=== PATIENT | female | born 1970 | race Two or more races ===

== ENCOUNTER 2017-06-27 12:19 | Emergency (ER) | payer OTHER ==
[~2017-06-27] VITALS: Ht 152.4 cm; Wt 67.1 kg
[2017-06-27] MEDS ORDERED: FLUORESCEIN OPHTHALMIC 1 MG STRIP ONE ×2 (13:36→14:16)
[2017-06-27] MEDS ORDERED: PROPARACAINE OPHTH 0.5%, 15ML ONE ×2 (13:36→14:16)
[2017-06-27 14:47] VITALS: BP 118/81
== END 2017-06-27 16:17 | disposition home or self-care (01) ==
LOC: ED 13:49
DX: Z77.098 Contact with and (suspected) exposure to other hazardous, chiefly nonmedicinal, chemicals (principal); H10.212 Acute toxic conjunctivitis, left eye
CPT/HCPCS: 99283

== ENCOUNTER 2017-06-30 14:41 | Emergency (ER) | payer OTHER ==
[~2017-06-30] VITALS: Ht 154.9 cm; Wt 67.0 kg
[2017-06-30 14:47] VITALS: BP 112/72
[2017-06-30] MEDS ORDERED: FLUORESCEIN OPHTHALMIC 1 MG STRIP ONE (16:04)
[2017-06-30] MEDS ORDERED: PROPARACAINE OPHTH 0.5%, 15ML ONE (16:04)
== END 2017-06-30 17:12 | disposition home or self-care (01) ==
LOC: ED 16:32
DX: S05.02XA Injury of conjunctiva and corneal abrasion without foreign body, left eye, initial encounter (principal); X58.XXXA Exposure to other specified factors, initial encounter; Y93.89 Activity, other specified; Y92.89 Other specified places as the place of occurrence of the external cause; Y99.8 Other external cause status
CPT/HCPCS: 99282

== ENCOUNTER → 2018-05-06 | Outpatient (CLI) | payer OTHER | END | disposition home or self-care (01) | LOC: CFH 09:39 | PROVIDERS: ATTEND Nurse Practitioner Family | DX: M79.642 Pain in left hand (principal); M79.89 Other specified soft tissue disorders ==

== ENCOUNTER 2018-06-09 20:39 | Emergency (ER) | payer OTHER ==
[~2018-06-09] VITALS: Ht 162.6 cm; Wt 70.0 kg
[2018-06-09] MEDS ORDERED: IRON1TAB60 PO (20:59)
[2018-06-09] MEDS ORDERED: ASPIRIN 81 MG TABLET CHEW PO ONE (21:00)
[2018-06-09] MEDS ORDERED: SODIUM CHLORIDE 0.9% 1,000ML IVBOLUS ONE (21:00)
[2018-06-09] MEDS ORDERED: ASPIRIN 81 MG TABLET CHEW ONE (21:02)
[2018-06-09 21:12] LABS: BASOPHILS # (AUTO) 0.09 x10^3/uL (0-0.1); BASOPHILS % (AUTO) 1 % (0-1); EOSINOPHILS # (AUTO) 0.05 x10^3/uL (0-0.4); EOSINOPHILS % (AUTO) 0 % (1-7); LYMPHOCYTES # (AUTO) 1.53 x10^3/uL (1-3.4); LYMPHOCYTES % (AUTO) 12 % (22-44); MD NO; MEAN CORPUSCULAR HEMOGLOBIN 28.8 pg (27.0-34.8); MEAN CORPUSCULAR HGB CONC 33.4 g/dL (32.4-35.8); MEAN CORPUSCULAR VOLUME 86.3 fL (80-100); MEAN PLATELET VOLUME 9.4 fL (7.4-10.4); MONOCYTES # (AUTO) 0.55 x10^3/uL (0.2-0.8); MONOCYTES % (AUTO) 4 % (2-9); NEUTROPHILS # (AUTO) 10.17 x10^3/uL (1.8-6.8); NEUTROPHILS % (AUTO) 82 % (42-75); PLATELET COUNT 337 x10^3/uL (130-400); RED BLOOD COUNT 5.05 x10^6/uL (3.82-5.3); RED CELL DISTRIBUTION WIDTH 14.7 % (9.6-15.2)
[2018-06-09 21:13] LABS: ALBUMIN 3.8 g/dL (3.4-5.0); ANION GAP 6 mmol/L (5-15); CHLORIDE 108 mmol/L (98-107); CREATININE 0.71 mg/dL (0.55-1.02)
[2018-06-09 21:17] LABS: TROPONIN I < 0.015 ng/mL (0.000-0.045)
[2018-06-09] MEDS ORDERED: IBUPROFEN 200 MG TABLET ONE (21:58)
[2018-06-09] MEDS ORDERED: IBUPROFEN 200 MG TABLET PO ONE (22:00)
[2018-06-09 22:02] VITALS: BP 117/84
== END 2018-06-09 22:15 | disposition home or self-care (01) ==
LOC: ED 21:25
DX: G44.209 Tension-type headache, unspecified, not intractable (principal)
CPT/HCPCS: 36415; 71046; 80048; 82040; 84484; 84703; 85025; 93005; 96360; 99285; J7030

== ENCOUNTER → 2018-07-09 | Outpatient (CLI) | payer OTHER ==
[~2018-07-09] MED LIST: IRON1TAB60 PO
[2018-07-09 16:36] LABS: BASOPHILS # (AUTO) 0.03 x10^3/uL (0-0.1); BASOPHILS % (AUTO) 1 % (0-1); EOSINOPHILS % (AUTO) 3 % (1-7); LYMPHOCYTES # (AUTO) 2.06 x10^3/uL (1-3.4); LYMPHOCYTES % (AUTO) 35 % (22-44); MD NO; MEAN CORPUSCULAR HEMOGLOBIN 29.3 pg (27.0-34.8); MEAN CORPUSCULAR HGB CONC 33.1 g/dL (32.4-35.8); MEAN CORPUSCULAR VOLUME 88.4 fL (80-100); MEAN PLATELET VOLUME 8.9 fL (7.4-10.4); MONOCYTES # (AUTO) 0.32 x10^3/uL (0.2-0.8); MONOCYTES % (AUTO) 5 % (2-9); NEUTROPHILS # (AUTO) 3.34 x10^3/uL (1.8-6.8); NEUTROPHILS % (AUTO) 56 % (42-75); PLATELET COUNT 355 x10^3/uL (130-400); RED CELL DISTRIBUTION WIDTH 15.2 % (9.6-15.2)
[2018-07-09 16:42] LABS: CHLORIDE 109 mmol/L (98-107)
[2018-07-09 16:50] LABS: ALANINE AMINOTRANSFERASE 23 U/L (12-78); ALBUMIN 3.2 g/dL (3.4-5.0); ALKALINE PHOSPHATASE 93 U/L (45-117); ANION GAP 6 mmol/L (5-15); BILIRUBIN,TOTAL 0.2 mg/dL (0.2-1.0); CALCIUM 8.7 mg/dL (8.5-10.1); CREATININE 0.64 mg/dL (0.55-1.02); TOTAL PROTEIN 6.9 g/dL (6.4-8.2)
[2018-07-14 16:33] LABS: ANA SCREEN NEGATIVE (Negative)
== END | disposition home or self-care (01) ==
LOC: LAB 16:11
PROVIDERS: ATTEND Internal Medicine Rheumatology
DX: Z00.00 Encounter for general adult medical examination without abnormal findings (principal); R76.0 Raised antibody titer
CPT/HCPCS: 36415; 80053; 85025; 86038

== ENCOUNTER → 2018-10-07 | Outpatient (CLI) | payer OTHER ==
[2018-10-07 16:09] LABS: MICROSCOPIC AUTO
[2018-10-07 16:14] LABS: CULTURE INDICATED? YES
== END | disposition home or self-care (01) ==
LOC: LAB 15:24
PROVIDERS: ATTEND Family Medicine
DX: Z00.00 Encounter for general adult medical examination without abnormal findings (principal)
CPT/HCPCS: 81001; 87086

== ENCOUNTER → 2018-10-08 | Outpatient (CLI) | payer OTHER ==
[2018-10-08 07:30] LABS: BASOPHILS # (AUTO) 0.05 x10^3/uL (0-0.1); BASOPHILS % (AUTO) 1 % (0-1); EOSINOPHILS # (AUTO) 0.15 x10^3/uL (0-0.4); EOSINOPHILS % (AUTO) 2 % (1-7); LYMPHOCYTES # (AUTO) 1.89 x10^3/uL (1-3.4); LYMPHOCYTES % (AUTO) 31 % (22-44); MD NO; MEAN CORPUSCULAR HGB CONC 33.2 g/dL (32.4-35.8); MEAN CORPUSCULAR VOLUME 87.2 fL (80-100); MEAN PLATELET VOLUME 8.7 fL (7.4-10.4); MONOCYTES # (AUTO) 0.52 x10^3/uL (0.2-0.8); MONOCYTES % (AUTO) 8 % (2-9); NEUTROPHILS # (AUTO) 3.55 x10^3/uL (1.8-6.8); NEUTROPHILS % (AUTO) 58 % (42-75); PLATELET COUNT 309 x10^3/uL (130-400); RED CELL DISTRIBUTION WIDTH 14.4 % (9.6-15.2)
[2018-10-08 07:37] LABS: ALANINE AMINOTRANSFERASE 27 U/L (12-78); ALBUMIN 3.2 g/dL (3.4-5.0); ANION GAP 9 mmol/L (5-15); CALCIUM 8.5 mg/dL (8.5-10.1); CHLORIDE 110 mmol/L (98-107)
[2018-10-08 07:39] LABS: ALKALINE PHOSPHATASE 81 U/L (45-117); BILIRUBIN,TOTAL 0.4 mg/dL (0.2-1.0); CHOL/HDL RATIO 3.8; CHOLESTEROL, TOTAL 212 mg/dL (140-239); CREATININE 0.59 mg/dL (0.55-1.02); HDL CHOL % 26 % (28-40); HDL CHOLESTEROL (DIRECT) 56 mg/dL (40-60); LDL CHOLESTEROL,CALCULATED 137 mg/dL (54-169); LDL/HDL RATIO 2.4 (0.5-3.0); TOTAL PROTEIN 7.1 g/dL (6.4-8.2); TRIGLYCERIDES 95 mg/dL (50-200); VLDL CHOLESTEROL 19 mg/dL (0-25)
== END | disposition home or self-care (01) ==
LOC: LAB 07:13
PROVIDERS: ATTEND Family Medicine
DX: Z00.00 Encounter for general adult medical examination without abnormal findings (principal)
CPT/HCPCS: 36415; 80053; 80061; 85025

== ENCOUNTER 2019-12-14 15:58 | Emergency (ER) | payer OTHER ==
[~2019-12-14] VITALS: Ht 154.9 cm; Wt 78.0 kg
[2019-12-14 16:53] VITALS: BP 114/64
--- NOTE | 2019-12-14 17:11 | NUR ---
Pt c/o 4 weeks of cough and nasal congestion with worsening of cough over the past two days with associated headache. Pt denies cp, sob, n/v/d, syncope, or trauma. Pt connected to NIBP cuff and continous pulse ox monitor. Pt has call light within reach and spouse is at bedside. NADN. No needs expressed.
[2019-12-14] MEDS ORDERED: HYDROcodone/APAP 5/325 TABLET PO ONE (18:00)
[2019-12-14] MEDS ORDERED: HYDROcodone/APAP 5/325 TABLET ONE (18:01)
--- NOTE | 2019-12-14 18:36 | NUR ---
Patient given discharge instructions and they have confirmed that they understand the instructions. Patient ambulatory with steady gait. Pt left with d/c paperwork, Rx, and all personal belongings.
== END 2019-12-14 18:51 | disposition home or self-care (01) ==
LOC: ED 18:42
DX: J01.10 Acute frontal sinusitis, unspecified (principal); J01.00 Acute maxillary sinusitis, unspecified
CPT/HCPCS: 71046; 99283

== ENCOUNTER 2020-04-08 18:23 | Emergency (ER) | payer OTHER ==
[~2020-04-08] VITALS: Ht 139.7 cm; Wt 67.2 kg
[2020-04-08 18:27] VITALS: BP 136/81
--- NOTE | 2020-04-08 18:55 | NUR ---
PT IN GOWN IN [facility]. PT ATTACHED TO VS MONITORS. VSS. DR CABAN AT FOR PT HISTORY AND ASSESSMENT.
--- NOTE | 2020-04-08 19:44 | NUR ---
PT D/C WITH D/C SUMMARY. ALL QUESTIONS ANSWERED. PT AMBULATES TO REGISTRATION DESK WITH STEADY GAIT FOR D/C HOME. PT DENIES ANY OTHER NEEDS PERTAINING TO THIS VISIT.
== END 2020-04-08 19:47 | disposition home or self-care (01) ==
LOC: ED 18:45
DX: R50.9 Fever, unspecified (principal); F43.9 Reaction to severe stress, unspecified; M79.10 Myalgia, unspecified site
CPT/HCPCS: 99281

== ENCOUNTER 2020-04-10 09:31 | Emergency (ER) | payer OTHER ==
[~2020-04-10] VITALS: Ht 154.9 cm; Wt 68.0 kg
[2020-04-10] MEDS ORDERED: HYDROmorphone 1 MG/ML, 1ML INJ ONE (10:03)
[2020-04-10] MEDS ORDERED: KETOROLAC 30 MG/1 ML ONE (10:03)
[2020-04-10] MEDS ORDERED: ONDANSETRON 2MG/ML, 2ML ONE (10:04)
--- NOTE | 2020-04-10 10:23 | NUR ---
PT MEDICATED PER JAN. REPORTS PAIN IMPROVEMENT
[2020-04-10] MEDS ORDERED: HYDROmorphone 2 MG/ML, 1ML IVPush PRN (10:30)
[2020-04-10] MEDS ORDERED: ONDANSETRON 2MG/ML, 2ML IVPush ONE (10:30)
[2020-04-10] MEDS ORDERED: KETOROLAC 30 MG/1 ML IV ONE (10:30)
[2020-04-10] MEDS ORDERED: SODIUM CHLORIDE 0.9% 1,000ML IV ONE (10:30)
[2020-04-10 10:49] LABS: MICROSCOPIC INDICATED
[2020-04-10 10:50] LABS: ALANINE AMINOTRANSFERASE 26 U/L (12-78); ALBUMIN 3.2 g/dL (3.4-5.0); ANION GAP 7 mmol/L (5-15); CALCIUM 8.6 mg/dL (8.5-10.1); CHLORIDE 105 mmol/L (98-107); CREATININE 0.62 mg/dL (0.55-1.02)
[2020-04-10 10:52] LABS: ALKALINE PHOSPHATASE 92 U/L (45-117); BILIRUBIN,TOTAL 0.1 mg/dL (0.2-1.0); TOTAL PROTEIN 7.2 g/dL (6.4-8.2)
--- NOTE | 2020-04-10 10:53 | NUR ---
PT BACK FROM CT. RESTING IN [facility]. VSS.
[2020-04-10 10:58] LABS: CULTURE INDICATED? YES
[2020-04-10] MEDS ORDERED: SODIUM CHLORIDE FLUSH 10ML SYR IVF ONE (11:30)
[2020-04-10 11:38] LABS: MD YES
[2020-04-10 11:39] LABS: MEAN CORPUSCULAR HEMOGLOBIN 27.9 pg (27.0-34.8); MEAN CORPUSCULAR HGB CONC 32.8 g/dL (32.4-35.8); MEAN CORPUSCULAR VOLUME 85.1 fL (80-100); MEAN PLATELET VOLUME 9.2 fL (7.4-10.4); PLATELET COUNT 323 x10^3/uL (130-400); RED BLOOD COUNT 4.64 x10^6/uL (3.82-5.3); RED CELL DISTRIBUTION WIDTH 16.4 % (9.6-15.2); SEG#(MANUAL) 1.79 x10^3/uL (1.8-6.8); SEGS% (MANUAL) 38 % (42-75)
--- NOTE | 2020-04-10 11:39 | NUR ---
[place] [facility] [place]. NAD
[2020-04-10 11:40] LABS: BAND#(MANUAL) 0.05 x10^3/uL; BANDS%(MANUAL) 1 % (0-7); EOS#(MANUAL) 0.05 x10^3/uL (0.0-0.4); EOS% (MANUAL) 1 % (1-7); LYMPH#(MANUAL) 1.79 x10^3/uL (1-3.4); LYMPHS% (MANUAL) 38 % (22-44); MONOS% (MANUAL) 17 % (2-9); REACTIVE LYMPHS # (MANUAL) 0.24 x10^3/uL (0-0); REACTIVE LYMPHS % (MANUAL) 5 % (0-0)
[2020-04-10 11:41] LABS: <PLATELET ESTIMATE> ADEQUATE; <PLT MORPHOLOGY> NORMAL PLT MORPH; <RBC MORPHOLOGY> NORMAL
[2020-04-10 12:22] VITALS: BP 121/73
--- NOTE | 2020-04-10 12:22 | NUR ---
PT ROAD TEST FAILED. PT DIZZY AND NAUSEOUS
== END 2020-04-10 13:16 | disposition home or self-care (01) ==
LOC: ED 10:44
DX: R10.9 Unspecified abdominal pain (principal)
CPT/HCPCS: 36415; 74176; 80053; 81001; 83605; 85025; 87040; 87086; 96374; 96375; 99284; J1170; J1885; J2405; J7030

== ENCOUNTER 2020-04-14 14:49 | Emergency (ER) | payer OTHER ==
[~2020-04-14] VITALS: Ht 154.9 cm; Wt 67.5 kg
[2020-04-14] MEDS ORDERED: DIAZEPAM 5 MG TABLET PO ONE (16:00)
[2020-04-14] MEDS ORDERED: KETOROLAC 30 MG/1 ML IM ONE (16:00)
[2020-04-14] MEDS ORDERED: DIAZEPAM 5 MG TABLET ONE (16:07)
[2020-04-14] MEDS ORDERED: KETOROLAC 30 MG/1 ML ONE (16:07)
[2020-04-14 17:26] LABS: MICROSCOPIC NOT IND
[2020-04-14 17:37] LABS: ALBUMIN 3.1 g/dL (3.4-5.0); ANION GAP 6 mmol/L (5-15); CALCIUM 8.5 mg/dL (8.5-10.1); CHLORIDE 107 mmol/L (98-107)
[2020-04-14 17:40] LABS: ALANINE AMINOTRANSFERASE 26 U/L (12-78); ALKALINE PHOSPHATASE 91 U/L (45-117); BILIRUBIN,TOTAL 0.3 mg/dL (0.2-1.0); CREATININE 0.57 mg/dL (0.55-1.02); TOTAL PROTEIN 7.2 g/dL (6.4-8.2)
[2020-04-14 17:57] LABS: MD YES; MEAN CORPUSCULAR HEMOGLOBIN 27.7 pg (27.0-34.8); MEAN CORPUSCULAR HGB CONC 32.6 g/dL (32.4-35.8); MEAN CORPUSCULAR VOLUME 84.9 fL (80-100); MEAN PLATELET VOLUME 8.7 fL (7.4-10.4); PLATELET COUNT 347 x10^3/uL (130-400); RED BLOOD COUNT 4.61 x10^6/uL (3.82-5.3); RED CELL DISTRIBUTION WIDTH 16.4 % (9.6-15.2)
[2020-04-14 18:28] LABS: BAND#(MANUAL) 0.04 x10^3/uL; BANDS%(MANUAL) 1 % (0-7); BASOS#(MANUAL) 0.04 x10^3/uL (0-0.1); BASOS% (MANUAL) 1 % (0-1); LYMPH#(MANUAL) 1.62 x10^3/uL (1-3.4); LYMPHS% (MANUAL) 45 % (22-44); MONOS#(MANUAL) 0.14 x10^3/uL (0.3-2.7); MONOS% (MANUAL) 4 % (2-9); REACTIVE LYMPHS # (MANUAL) 0.22 x10^3/uL (0-0); REACTIVE LYMPHS % (MANUAL) 6 % (0-0); SEG#(MANUAL) 1.55 x10^3/uL (1.8-6.8); SEGS% (MANUAL) 43 % (42-75)
[2020-04-14 18:29] LABS: <PLATELET ESTIMATE> ADEQUATE; <PLT MORPHOLOGY> NORMAL PLT MORPH; <RBC MORPHOLOGY> NORMAL
[2020-04-14 18:37] VITALS: BP 114/76
== END 2020-04-14 18:39 | disposition home or self-care (01) ==
LOC: ED 18:33
DX: U07.1 COVID-19 (principal); S39.012A Strain of muscle, fascia and tendon of lower back, initial encounter; X58.XXXA Exposure to other specified factors, initial encounter; Y93.89 Activity, other specified; Y92.89 Other specified places as the place of occurrence of the external cause; Y99.8 Other external cause status
CPT/HCPCS: 36415; 72148; 80053; 81003; 85025; 99284; U0001

== ENCOUNTER 2020-06-23 14:30 | Emergency (ER) | payer OTHER ==
[~2020-06-23] VITALS: Ht 154.9 cm; Wt 70.0 kg
[2020-06-23 15:28] LABS: BASOPHILS # (AUTO) 0.04 x10^3/uL (0-0.1); BASOPHILS % (AUTO) 1 % (0-1); EOSINOPHILS % (AUTO) 2 % (1-7); LYMPHOCYTES # (AUTO) 1.97 x10^3/uL (1-3.4); LYMPHOCYTES % (AUTO) 34 % (22-44); MD NO; MEAN CORPUSCULAR HGB CONC 31.8 g/dL (32.4-35.8); MEAN CORPUSCULAR VOLUME 84.9 fL (80-100); MEAN PLATELET VOLUME 8.7 fL (7.4-10.4); MONOCYTES # (AUTO) 0.49 x10^3/uL (0.2-0.8); MONOCYTES % (AUTO) 9 % (2-9); NEUTROPHILS # (AUTO) 3.12 x10^3/uL (1.8-6.8); NEUTROPHILS % (AUTO) 55 % (42-75); PLATELET COUNT 367 x10^3/uL (130-400); RED BLOOD COUNT 4.36 x10^6/uL (3.82-5.3)
[2020-06-23] MEDS ORDERED: KETOROLAC 30 MG/1 ML IM ONE (15:30)
[2020-06-23 15:40] LABS: ALBUMIN 3.2 g/dL (3.4-5.0); ANION GAP 5 mmol/L (5-15); CALCIUM 9.1 mg/dL (8.5-10.1); CHLORIDE 104 mmol/L (98-107); CREATININE 0.61 mg/dL (0.55-1.02)
[2020-06-23 15:44] LABS: TROPONIN I < 0.015 ng/mL (0.000-0.045)
--- NOTE | 2020-06-23 15:54 | NUR ---
PT REPORTS PAIN IS BETTER AFTER SHE TOOK ASPIRIN EARLIER AND REFUSED TORADOL.
[2020-06-23 15:56] VITALS: BP 122/76
== END 2020-06-23 16:04 | disposition home or self-care (01) ==
LOC: ED 15:30
DX: H10.12 Acute atopic conjunctivitis, left eye (principal); R07.89 Other chest pain; R06.02 Shortness of breath
CPT/HCPCS: 36415; 71045; 80048; 82040; 84484; 85025; 93005; 99285

== ENCOUNTER 2020-09-16 17:55 | Emergency (ER) | payer OTHER ==
[~2020-09-16] VITALS: Ht 154.9 cm; Wt 69.9 kg
--- NOTE | 2020-09-16 18:33 | NUR ---
railroad police officer:Pt to room from lobby at this time.
--- NOTE | 2020-09-16 18:46 | NUR ---
chandrakant report from Lyla ERNANDEZ, pt care transferred at this time.
--- NOTE | 2020-09-16 19:01 | NUR ---
pt reports coming into ED today due to nausea, vomitting and dizziness. pt states this am when she woke up she felt like the room was spinning, got nauseated and threw up. pt has thrown up a few times since, denies diarrhea. denies falls with dizziness. pt gross neuro intact, no deficits noted at this time. pt resting on navdeep, at bs. Gracie DE LEON at bs for eval and poc. WCTM pt placed on spo2/bp/ecg monitoring
[2020-09-16] MEDS ORDERED: MECLIZINE CHEWABLE 25 MG TAB PO ONE (19:30)
[2020-09-16] MEDS ORDERED: ONDANSETRON ODT 4 MG PO ONE ×2 (19:30→21:00)
[2020-09-16] MEDS ORDERED: MECLIZINE CHEWABLE 25 MG TAB ONE (19:36)
[2020-09-16] MEDS ORDERED: ONDANSETRON ODT 4 MG ONE ×2 (19:36→20:44)
[2020-09-16 19:59] LABS: ALBUMIN 3.3 g/dL (3.4-5.0); ANION GAP 6 mmol/L (5-15); CHLORIDE 107 mmol/L (98-107)
[2020-09-16 20:02] LABS: BASOPHILS % (AUTO) 1 % (0-1); EOSINOPHILS % (AUTO) 0 % (1-7); LYMPHOCYTES % (AUTO) 10 % (22-44); MEAN CORPUSCULAR HEMOGLOBIN 25.4 pg (27.0-34.8); MEAN CORPUSCULAR HGB CONC 31.9 g/dL (32.4-35.8); MEAN PLATELET VOLUME 8.7 fL (7.4-10.4); MONOCYTES % (AUTO) 3 % (2-9); NEUTROPHILS % (AUTO) 86 % (42-75); PLATELET COUNT 428 x10^3/uL (130-400); RED BLOOD COUNT 4.75 x10^6/uL (3.82-5.3); RED CELL DISTRIBUTION WIDTH 16.3 % (9.6-15.2)
--- NOTE | 2020-09-16 20:02 | NUR ---
pt resting on gurney, NAD, medicated per jan, reports slight decrease in nausea. Lights dimmed for comfort, WCTM. waiting for lab results.
[2020-09-16 20:04] LABS: MD NO
[2020-09-16 20:08] LABS: CALCIUM 8.6 mg/dL (8.5-10.1); TROPONIN I < 0.015 ng/mL (0.000-0.045)
[2020-09-16] MEDS ORDERED: DIAZEPAM 5 MG TABLET PO ONE (20:30)
[2020-09-16] MEDS ORDERED: DIAZEPAM 5 MG TABLET ONE (20:43)
--- NOTE | 2020-09-16 21:22 | NUR ---
pt nad, reports still being extremely dizzy, reports nausea is still there as well. pt resting on gurney, medicated per jan, wctm.
[2020-09-16] MEDS ORDERED: SODIUM CHLORIDE 0.9% 1,000ML IVBOLUS ONE (21:30)
[2020-09-16] MEDS ORDERED: PROCHLORPERAZINE 5 MG/ML, 2ML ONE (22:19)
[2020-09-16] MEDS ORDERED: KETOROLAC 30 MG/1 ML ONE (22:20)
[2020-09-16] MEDS ORDERED: DIPHENHYDRAMINE 50 MG/ML, 1ML ONE (22:20)
[2020-09-16] MEDS ORDERED: LORazepam 2 MG/ML, 1ML IVPush ONE (22:30)
[2020-09-16] MEDS ORDERED: DIPHENHYDRAMINE 50 MG/ML, 1ML IVPush ONE (22:30)
[2020-09-16] MEDS ORDERED: KETOROLAC 30 MG/1 ML IVPush ONE (22:30)
[2020-09-16] MEDS ORDERED: PROCHLORPERAZINE 5 MG/ML, 2ML IM ONE (22:30)
--- NOTE | 2020-09-16 22:35 | NUR ---
PT MEDICATED PER JAN, PROVIDED BS COMMODE FOR URINATING, REQUEST FOOD BECUASE SHE IS HUNGRY, PT NAD, DENIES ANY ADDITIONAL NEEDS OTHER THAN A SNACK. WCTM. AT BS WAITING FOR MEDICATIONS TO HELP ALLIEVIATE SYMPTOMS OF SMITH. NO NUNO FLYNN NEURO STATUS
--- NOTE | 2020-09-16 23:27 | NUR ---
pt provided snacks and sprite. nad, appears more comfortable, states nausea is decreased. so far able to keep down sprite. at , wctm.
[2020-09-17 00:22] VITALS: BP 105/59
--- NOTE | 2020-09-17 00:23 | NUR ---
Patient/SPOUSE given discharge instructions and they have confirmed that they understand the instructions. Patient ambulatory with steady gait, DECIDED TO USE WHEELCHAIR INSTEAD OF WALK. PT NAD, VSS, DENIES ADDITIONAL QUESTIONS OR NEEDS AT THIS TIME.
== END 2020-09-17 00:25 | disposition home or self-care (01) ==
LOC: ED 18:25
DX: H81.392 Other peripheral vertigo, left ear (principal); R94.31 Abnormal electrocardiogram [ECG] [EKG]; R07.89 Other chest pain; R11.2 Nausea with vomiting, unspecified
CPT/HCPCS: 36415; 71045; 80048; 82040; 84484; 84703; 85025; 93005; 96361; 96372; 96374; 96375; 99285; J0780; J1200; J1885; J7030; Q0162

== ENCOUNTER → 2020-10-02 | Outpatient (CLI) | payer OTHER ==
[~2020-10-02] MED LIST changes: +GADOTERATE 10 MMOL/20 ML VIAL ONE
== END | disposition home or self-care (01) ==
LOC: RAD 15:03
PROVIDERS: ATTEND Family Medicine
DX: J32.3 Chronic sphenoidal sinusitis (principal); R42 Dizziness and giddiness
CPT/HCPCS: 70553; A9575